=== PATIENT | female | born 1995 | race Two or more races ===

== ENCOUNTER 2024-02-27 08:49 | Outpatient (CLI) | payer OTHER | END 2024-02-27 08:52 | disposition home or self-care (01) | LOC: PRENATAL 08:49 | PROVIDERS: ATTEND Obstetrics & Gynecology Maternal & Fetal Medicine | DX: O36.80X0 Pregnancy with inconclusive fetal viability, not applicable or unspecified (principal); Z36.82 Encounter for antenatal screening for nuchal translucency; Z14.8 Genetic carrier of other disease; Z3A.13 13 weeks gestation of pregnancy ==

== ENCOUNTER 2024-04-16 14:10 | Outpatient (CLI) | payer OTHER | END 2024-04-16 14:11 | disposition home or self-care (01) | LOC: PRENATAL 14:10 | PROVIDERS: ATTEND Obstetrics & Gynecology Maternal & Fetal Medicine | DX: O44.00 Complete placenta previa NOS or without hemorrhage, unspecified trimester (principal); Z3A.20 20 weeks gestation of pregnancy ==

== ENCOUNTER 2024-05-19 11:35 | Emergency (ER) | payer OTHER ==
[~2024-05-19] VITALS: Ht 170.2 cm; Wt 53.5 kg
[2024-05-19] MEDS ORDERED: VITATRUE COMBO1 EACH (12:00)
[2024-05-19] MEDS ORDERED: RINGERS SOLUTION,LACTATED 1,000 ML IV STA (12:36)
[2024-05-19] MEDS ORDERED: METOCLOPRAMIDE HCL 5 MG/ML VIAL IM STA (12:37)
[2024-05-19] MEDS ORDERED: FAMOtidine 10 MG/ML (4ML VIAL) IV PUSH STA (12:37)
[2024-05-19] MEDS ORDERED: ONDANSETRON HCL 2 MG/ML VIAL IV STA (12:37)
[2024-05-19] MEDS ORDERED: CEFTRIAXONE SODIUM 2,000 MG VIAL IV STA (12:38)
[2024-05-19] MEDS ORDERED: ONDANSETRON HCL 2 MG/ML VIAL ONE (12:42)
[2024-05-19] MEDS ORDERED: CEFTRIAXONE SODIUM 1,000 MG VIAL ONE (12:43)
[2024-05-19] MEDS ORDERED: FAMOTIDINE/PF 20 MG/2 ML VIAL ONE (12:43)
[2024-05-19] MEDS ORDERED: METOCLOPRAMIDE HCL 5 MG/ML VIAL ONE (12:43)
[2024-05-19 13:57] LABS: HEMATOCRIT 30.6 % (36.0-45.00); HEMOGLOBIN 10.8 g/dL (12.0-15.00); MEAN CELL VOLUME 90.3 fL (80.00-100.00); MEAN CORPUSCULAR HEMOGLOBIN 31.9 pg (27.00-32.0); MEAN CORPUSCULAR HGB CONC 35.3 g/dl (32.0-36.0); PLATELET COUNT 174 K/uL (150-450); RED BLOOD COUNT 3.39 M/uL (4.00-6.00); RED CELL DISTRIBUTION WIDTH 14.5 % (11.5-14.5)
[2024-05-19 14:06] LABS: URINE APPEARANCE Turbid; URINE BILIRRUBIN Negative (NEGATIVE); URINE BLOOD Moderate; URINE COLOR Yellow; URINE GLUCOSE Negative (NEGATIVE); URINE LEUKOCYTE Moderate; URINE NITRATE Negative
[2024-05-19 14:08] LABS: CALCIUM 9.1 mg/dL (8.5-10.1); CREATININE SERUM 0.55 mg/dL (0.55-1.02); GFR 132.59; POTASSIUM 3.84 mEq/L (3.5-5.1)
[2024-05-19 14:18] LABS: URINE EPITHELIAL CELLS 41.4 uL (0.0-38.8); URINE RBC 157.9 uL (0.0-20.8)
[2024-05-19 14:21] LABS: URINE KETONE 40 (NEGATIVE); URINE PROTEIN 100 (NEGATIVE)
== END 2024-05-19 14:43 | disposition home or self-care (01) ==
LOC: ER 11:38
DX: O23.42 Unspecified infection of urinary tract in pregnancy, second trimester (principal); N39.0 Urinary tract infection, site not specified; O21.9 Vomiting of pregnancy, unspecified; Z3A.25 25 weeks gestation of pregnancy

== ENCOUNTER → 2024-07-09 | Outpatient (CLI) | payer OTHER ==
[~2024-07-09] MED LIST: VITATRUE COMBO1 EACH
== END | disposition home or self-care (01) ==
LOC: PRENATAL 12:46
PROVIDERS: ATTEND Obstetrics & Gynecology Maternal & Fetal Medicine
DX: O26.849 Uterine size-date discrepancy, unspecified trimester (principal); O36.8199 Decreased fetal movements, unspecified trimester, other fetus; O32.9XX0 Maternal care for malpresentation of fetus, unspecified, not applicable or unspecified; O99.019 Anemia complicating pregnancy, unspecified trimester; Z3A.31 31 weeks gestation of pregnancy

== ENCOUNTER → 2024-07-29 15:03 | Outpatient (CLI) | payer OTHER | END | disposition home or self-care (01) | LOC: PRENATAL 15:03 | PROVIDERS: ATTEND Obstetrics & Gynecology Maternal & Fetal Medicine | DX: O26.849 Uterine size-date discrepancy, unspecified trimester (principal); O36.8199 Decreased fetal movements, unspecified trimester, other fetus; O32.9XX0 Maternal care for malpresentation of fetus, unspecified, not applicable or unspecified; Z3A.34 34 weeks gestation of pregnancy ==

== ENCOUNTER 2024-08-13 13:22 | Inpatient (IN) | payer OTHER ==
[~2024-08-13] VITALS: Ht 170.2 cm; Wt 58.1 kg
[2024-08-19 07:30] VITALS: BP 119/78
[2024-08-19] MEDS ORDERED: MISOPROSTOL 50 MCG TABLET ONE (08:19)
[2024-08-19 08:35] LABS: PH,URINE 6.5 (5.0-8.0); URINE APPEARANCE Clear; URINE BILIRRUBIN Negative (NEGATIVE); URINE BLOOD Negative; URINE COLOR Yellow; URINE GLUCOSE Negative (NEGATIVE); URINE KETONE Negative (NEGATIVE); URINE LEUKOCYTE Moderate; URINE NITRATE Negative; URINE PROTEIN Negative (NEGATIVE); URINE UROBILINOGEN 0.2 E.U./dl
[2024-08-19 08:37] LABS: HEMATOCRIT 33.1 % (36.0-45.00); HEMOGLOBIN 11.5 g/dL (12.0-15.00); MEAN CELL VOLUME 91.6 fL (80.00-100.00); MEAN CORPUSCULAR HEMOGLOBIN 31.9 pg (27.00-32.0); MEAN CORPUSCULAR HGB CONC 34.9 g/dl (32.0-36.0); PLATELET COUNT 217 K/uL (150-450); RED BLOOD COUNT 3.61 M/uL (4.00-6.00); RED CELL DISTRIBUTION WIDTH 14.9 % (11.5-14.5)
[2024-08-19 08:41] LABS: URINE BACTERIA 2922.6 uL (0.0-1933); URINE EPITHELIAL CELLS 32.4 uL (0.0-38.8); URINE RBC 3.9 uL (0.0-20.8); URINE WBC 130.2 uL (0.0-23.2)
[2024-08-19 09:01] LABS: INR < 0.93; PARTIAL THROMBOPLASTIN TIME 25.8 SECONDS (22.0-34.0); PROTHROMBIN TIME 9.8 SECONDS (9.0-11.5)
[2024-08-19] MEDS ORDERED: MISOPROSTOL 50 MCG TABLET VAG ONE (09:15)
[2024-08-19 09:25] LABS: URINE CAST 0.29 uL (0.0-1.40)
[2024-08-19 09:54] LABS: ALBUMIN 3.1 gm/dL (3.4-5.0); BILIRUBIN TOTAL 0.26 mg/dL (0.3-1.2); CALCIUM 8.9 mg/dL (8.5-10.1); CREATININE SERUM 0.45 mg/dL (0.55-1.02); GFR 167.13; GLOBULINA 3.7 G/DL (2.4-3.5); POTASSIUM 4.01 mEq/L (3.5-5.1); TOTAL PROTEIN 6.8 gm/dL (6.4-8.2)
[2024-08-19 11:01] VITALS: BP 117/69
[2024-08-19] MEDS ORDERED: MISOPROSTOL 25 MCG/4 ML GEL.W.APPL ONE (12:54)
[2024-08-19] MEDS ORDERED: TERBUTALINE SULFATE 1 MG/ML AMPUL SUBCUTANEO SCH (13:45)
[2024-08-19] MEDS ORDERED: MISOPROSTOL 25 MCG/4 ML GEL.W.APPL VAG ONE (13:45)
[2024-08-19 15:16] VITALS: BP 114/55
[2024-08-19] MEDS ORDERED: ERYTHROMYCIN BASE OPHT 1GM EACH TUBE OP ONE (16:52)
[2024-08-19] MEDS ORDERED: OXYTOCIN 10 UNITS/ML VIAL ONE ×2 (16:52→21:42)
[2024-08-19] MEDS ORDERED: ONDANSETRON HCL 2 MG/ML VIAL IV PRN (18:45)
[2024-08-19] MEDS ORDERED: MORPHINE SULFATE 4 MG/ML CARTRIDGE IV PRN (18:45)
[2024-08-19] MEDS ORDERED: KETOROLAC TROMETHAMINE 30 MG VIAL IV SCH (19:00)
[2024-08-19] MEDS ORDERED: MORPHINE SULFATE 4 MG/ML VIAL IV ONE ×2 (19:40→20:40)
[2024-08-19] MEDS ORDERED: SENNOSIDES 1 TAB TABLET PO SCH (21:00)
[2024-08-19] MEDS ORDERED: SIMETHICONE 125 MG CAPSULE PO SCH (21:00)
[2024-08-19] MEDS ORDERED: RINGERS SOLUTION,LACTATED 1,000 ML IV SCH (21:45)
[2024-08-19] MEDS ORDERED: OXYTOCIN 1,000 ML IV SCH (21:45)
[2024-08-19] MEDS ORDERED: METOCLOPRAMIDE HCL 5 MG/ML VIAL IV SCH (21:45)
[2024-08-19 22:37] VITALS: BP 126/73
[2024-08-19] MEDS ORDERED: SODIUM CL 0.9% 50 ML IV.SOLN IV ONE (23:24)
[2024-08-20 00:07] VITALS: BP 125/82
[2024-08-20] MEDS ORDERED: CEFOXITIN SODIUM 1,000 MG in 0.9 % SODIUM CHLORIDE 50 ML IV SCH (01:00)
[2024-08-20] MEDS ORDERED: ACETAMINOPHEN 500 MG GEL..CAP PO SCH (06:00)
[2024-08-20] MEDS ORDERED: IBUprofen 800 MG TABLET PO SCH (09:00)
[2024-08-20] MEDS ORDERED: CEFOXITIN SODIUM 1,000 MG VIAL IV ONE (18:16)
[2024-08-21] VITALS: BP 108/70
[2024-08-21 08:49] VITALS: BP 95/61
[2024-08-21 15:47] VITALS: BP 119/78
== END 2024-08-21 18:34 | disposition home or self-care (01) | DRG 788 ==
LOC: LDR 08-19 06:38 → OB/GYN 08-19 06:38 → SURG 08-19 13:30 → O/R 08-19 18:29 → OB/GYN 08-19 20:03
PROVIDERS: ADMIT Obstetrics & Gynecology; ATTEND Obstetrics & Gynecology
PROC: 4A1HXCZ Monitoring of Products of Conception, Cardiac Rate, External Approach (ICD-10-PCS; 2024-08-19)
PROC: 10D00Z1 Extraction of Products of Conception, Low, Open Approach (ICD-10-PCS; principal; 2024-08-19 19:00)
DX: O36.5930 Maternal care for other known or suspected poor fetal growth, third trimester, not applicable or unspecified (principal); O36.8330 Maternal care for abnormalities of the fetal heart rate or rhythm, third trimester, not applicable or unspecified; Z3A.38 38 weeks gestation of pregnancy; Z37.0 Single live birth